=== PATIENT | male | born 1945 ===

== ENCOUNTER 2020-10-26 06:32 | Day surgery (SDC) | payer OTHER ==
[~2020-10-26 06:32] MED LIST: ATORVASTATIN CA20 MG PO; AVAPRO150 MG PO; [UNRECOGNIZED DRUG - OTHER] PO
== END 2020-10-26 17:45 | disposition home or self-care (01) ==
LOC: CIR.AMB 06:32
PROVIDERS: ATTEND Colon & Rectal Surgery
DX: K64.8 Other hemorrhoids (principal); K64.4 Residual hemorrhoidal skin tags; K64.1 Second degree hemorrhoids; Z20.822 Contact with and (suspected) exposure to COVID-19